=== PATIENT | female | born 1985 | race Caucasian/White ===

== ENCOUNTER 2018-09-19 03:40 | Inpatient (IN) ==
[2018-09-19 04:32] LABS: URINE SOURCE VOIDED
[2018-09-19] MEDS ORDERED: ZOFRAN IV ONE (04:45)
[2018-09-19] MEDS: LR 1,000 ML IV SCH ×2 (04:48→07:58)
[2018-09-19] MEDS: STADOL IV PRN ×2 (04:49→05:00)
[2018-09-19 05:32] LABS: BILIRUBIN URINE NEGATIVE (NEGATIVE); BLOOD URINE 4+ (NEGATIVE); CLARITY VERY CLOUDY (CLEAR); COLOR AMBER; GLUCOSE URINE NEGATIVE (NEGATIVE); KETONE URINE NEGATIVE (NEGATIVE); LEUKOCYTES URINE 1+ (NEGATIVE); NITRITE URINE NEGATIVE (NEGATIVE); PROTEIN URINE TRACE mg/dL (NEGATIVE); SP GRAVITY URINE 1.005; UROBILINOGEN URINE NORMAL
[2018-09-19] MEDS ORDERED: STADOL IV ONE (06:15)
[2018-09-19] MEDS ORDERED: ZOFRAN IV PRN (06:33)
[2018-09-19] MEDS ORDERED: PEPCID IV PRN (06:33)
[2018-09-19] MEDS ORDERED: REGLAN PO ONE (06:33)
[2018-09-19] MEDS ORDERED: TYLENOL PO PRN (06:33)
[2018-09-19] MEDS ORDERED: PEPCID PO ONE (06:33)
[2018-09-19] MEDS ORDERED: PEPCID PO PRN (06:33)
[2018-09-19] MEDS ORDERED: KEFZOL 1 GM/D5W 1 GM/50 ML IVPB IV PRN (06:33)
[2018-09-19] MEDS ORDERED: SODIUM CHLORIDE 0.9% INJ SCH (06:45)
[2018-09-19] MEDS ORDERED: PITOCIN 30 UNITS/NS 30 UNIT/500 ML IV.SOLN IV SCH ×2 (06:45→14:30)
[2018-09-19] MEDS ORDERED: LR 1,000 ML IV SCH (06:45)
[2018-09-19 06:46] LABS: BASO# 0.02 X1000 (0.0-0.2); BASO% 0.2 % (0.0-0.8); EOS% 1.1 % (0.0-10.0); HEMOGLOBIN 12.1 g/dL (12.0-16.0); IMM GRAN# 0.04 X1000 (0.0-0.04); IMM GRAN% 0.4 % (0.0-0.5); LYMPH# 2.29 X1000 (1.2-3.4); LYMPH% 25.3 % (20.5-51.1); MCH 33.4 PG (27-31); MCHC 35.6 g/dL (33-37); MCV 93.9 FL (81-99); MONO# 0.85 X1000 (0.11-0.59); MONO% 9.4 % (1.7-9.3); MPV 11.8 FL (7.4-10.4); NEUT# 5.75 X1000 (1.4-6.5); NEUT% 63.6 % (42.2-75.2); PLT 131 X1000 (130-400); RBC 3.62 XMIL (4.2-5.4); WBC 9.05 X1000 (4.8-10.8)
[2018-09-19] MEDS ORDERED: NAROPIN 0.2% EPIDURAL SCH (07:15)
[2018-09-19] MEDS ORDERED: NAROPIN 0.2% INJ PRN (07:15)
[2018-09-19] MEDS ORDERED: FENTANYL-BUPIV-NS 2 MCG-0.1% 200 ML EPIDURAL SCH (08:00)
[2018-09-19] MEDS ORDERED: MINERAL OIL ONE (08:02)
[2018-09-19] MEDS ORDERED: XYLOCAINE-MPF 1% INJ ONE (08:02)
[2018-09-19] MEDS ORDERED: PITOCIN IM PRN (14:28)
[2018-09-19] MEDS ORDERED: MINERAL OIL PO PRN (14:28)
[2018-09-19] MEDS ORDERED: AMBIEN PO PRN (14:28)
[2018-09-19] MEDS ORDERED: HYDROXYZINE IM PRN (14:28)
[2018-09-19] MEDS ORDERED: XYLOCAINE-MPF 1% INJ PRN (14:28)
[2018-09-19] MEDS ORDERED: ATARAX PO PRN (14:28)
[2018-09-19] MEDS ORDERED: BENADRYL PO PRN (14:28)
[2018-09-19] MEDS ORDERED: BENADRYL IV PRN (14:28)
[2018-09-19] MEDS ORDERED: BOOSTRIX VACCINE IM ONE (14:28)
[2018-09-19] MEDS ORDERED: M-M-R II VACCINE SUBQ ONE (14:28)
[2018-09-19] MEDS ORDERED: CYTOTEC PO PRN (14:28)
[2018-09-19] MEDS ORDERED: PITOCIN 20 UNITS/NS 20 UNITS/1,000 ML IV.SOLN IV SCH (14:30)
[2018-09-19] MEDS: PERI MEDS (DERMOPLAST/NUPERCAINAL/TUCKS) MISC PRN (15:00)
[2018-09-19] MEDS: MOTRIN PO PRN (16:26)
--- NOTE | 2018-09-19 16:55 | OPERATIVE NOTE ---
PROCEDURE DATE: 09/19/2018 PREOPERATIVE DIAGNOSIS: Intrauterine at 40 weeks gestation, in labor. POSTOPERATIVE DIAGNOSIS: Intrauterine at 40 weeks gestation, in labor. PROCEDURE: Spontaneous vaginal delivery ATTENDING: Dr. Dallas Black. ANESTHESIA: Epidural. ESTIMATED BLOOD LOSS: 200 mL. DESCRIPTION OF PROCEDURE: At 1404 on 09/19/2018 the patient delivered vaginally under epidural anesthesia. was suctioned with bulb. No nuchal cord was identified. Infant delivered vaginally without complications. The was placed on patient's abdomen after delivery. The cord was clamped and cut. Placenta was delivered intact with normal 3 vessel cord. The fundus was firm with massage and IV Pitocin. Perineal lacerations noted and a second degree perineal tear was repaired using 2-[address] needle. The patient delivered a viable male weighing 8 pounds 13 ounces and scores of 9 and 10 at 1 and 5 minutes respectively. temperature noted and sent to nursery for observation. Mom recovering well in delivery room. cc: MD YUMI Hargrove III
[2018-09-19] MEDS: PERICOLACE PO SCH (22:06)
[2018-09-20] MEDS: MOTRIN PO PRN ×3 (00:36→23:52)
[2018-09-20 07:21] LABS: HEMOGLOBIN 8.8 g/dL (12.0-16.0); RBC 2.62 XMIL (4.2-5.4); WBC 11.66 X1000 (4.8-10.8)
[2018-09-20 07:22] LABS: HEMATOCRIT 25.5 % (37.0-47.0); MCH 33.6 PG (27-31); MCHC 34.5 g/dL (33-37); MCV 97.3 FL (81-99); MPV 11.3 FL (7.4-10.4); RDW 13.3 % (11.5-14.5)
[2018-09-20] MEDS: COLACE PO SCH (10:04)
[2018-09-20] MEDS: PRECARE PO SCH (10:04)
[2018-09-20] MEDS: NORCO-5 PO PRN ×2 (15:49→23:52)
[2018-09-20] MEDS: FERROUS SULFATE PO SCH (15:52)
[2018-09-21] MEDS: PERICOLACE PO SCH (00:11)
[2018-09-21 06:45] LABS: BASO# 0.02 X1000 (0.0-0.2); BASO% 0.2 % (0.0-0.8); EOS# 0.24 X1000 (0.0-0.7); EOS% 2.7 % (0.0-10.0); HEMATOCRIT 25.1 % (37.0-47.0); HEMOGLOBIN 8.6 g/dL (12.0-16.0); IMM GRAN# 0.04 X1000 (0.0-0.04); IMM GRAN% 0.4 % (0.0-0.5); LYMPH# 1.78 X1000 (1.2-3.4); LYMPH% 19.7 % (20.5-51.1); MCH 33.3 PG (27-31); MCHC 34.3 g/dL (33-37); MCV 97.3 FL (81-99); MONO# 0.66 X1000 (0.11-0.59); MONO% 7.3 % (1.7-9.3); MPV 11.3 FL (7.4-10.4); NEUT% 69.7 % (42.2-75.2); PLT 111 X1000 (130-400); RBC 2.58 XMIL (4.2-5.4); RDW 13.1 % (11.5-14.5); WBC 9.04 X1000 (4.8-10.8)
[2018-09-21 08:14] VITALS: BP 133/85
--- NOTE | 2018-09-21 08:17 | OB/GYN PROGRESS NOTE ---
Progress Note OB - . Patient Problems: Current Active Problems Problem Status Onset Normal labor and delivery Acute Intrauterine Acute OB Progress Note: Vital Signs - 24 hr 09/20/18 09:30 09/20/18 15:50 09/20/18 20:30 Temperature 98.1 F 98.3 F 97.6 F Pulse Rate 88 71 73 Respiratory Rate 18 16 18 Blood Pressure 125/75 130/77 135/81 O2 Sat by Pulse Oximetry 97 100 09/21/18 05:00 Temperature Pulse Rate 82 Respiratory Rate 18 Blood Pressure 151/78 O2 Sat by Pulse Oximetry Laboratory Results - last 24 hr 09/21/18 06:09 WBC 9.04 RBC 2.58 L Hgb 8.6 L Hct 25.1 L MCV 97.3 MCH 33.3 H MCHC 34.3 RDW Std Deviation 13.1 Plt Count 111 L MPV 11.3 H Immature Gran % (Auto) 0.4 Neut % (Auto) 69.7 Lymph % (Auto) 19.7 L Emanuel % (Auto) 7.3 Eos % (Auto) 2.7 Baso % (Auto) 0.2 Immature Gran # (Auto) 0.04 Neut # (Auto) 6.30 Lymph # (Auto) 1.78 Emanuel # (Auto) 0.66 H Eos # (Auto) 0.24 Baso # (Auto) 0.02 32 yo G1 now P1001 WMF doing well on PPD#2 after 09-19-2018 of an 8+ lb male over midline laceration. She notes difficulty with and will obtain a pump today, notes mild low back and hemorrhoid pain responding to current remedies, and denies heavy lochia, clots, fever, or unrelieved pain. Ankle edema is unchanged from late and nontender VSS and AF. Platelets count is up from 102 to 111K and Hgb stable at 8.6 Exam NAD Fundus, lochia, laceration, extremitiesbreast survey all normal. Fundus U-2 nontender pedal and ankle edema 2+, nontender A/P Full discharge reviewed regarding meds, activities, limitations, BC, and return to Dr Holman in 6 weeks or PRN fever, heavy bleeding, unrelieved pain, breast fullness or redness, or depressed mood. Circumcision procedure, elective nature, risks , and timing after clearance by journeyman level acoustic analyst also discussed.
[2018-09-21] MEDS: MOTRIN PO PRN (09:33)
[2018-09-21] MEDS: NORCO-5 PO PRN (09:33)
[2018-09-21] MEDS: FERROUS SULFATE PO SCH (09:33)
[2018-09-21] MEDS: PERI MEDS (DERMOPLAST/NUPERCAINAL/TUCKS) MISC PRN (09:33)
[2018-09-21] MEDS: PRECARE PO SCH (09:34)
[2018-09-21] MEDS: COLACE PO SCH (09:34)
--- NOTE | 2018-09-21 21:06 | DISCHARGE SUMMARY ---
ADMISSION DATE: 09/19/2018 DISCHARGE DATE: 09/21/2018 ADMITTING DIAGNOSIS.: Active labor. DISCHARGE DIAGNOSES: 1. Normal labor and delivery. 2. Viable male infant. 3. Anemia of . 4. Blood type B-positive, rubella immune. HISTORY OF PRESENT ILLNESS: Cooper is now a 32-year-old 1, para 1-0-0-1, white female, followed under the care of Dr. Holman and presenting in active labor at 40 weeks' gestation. care began at about 18 weeks. Full details of the past medical, social, family, and histories are listed on the written record. HOSPITAL COURSE: Laboratory includes hemoglobin 8.8. She progressed in spontaneous labor to an uncomplicated normal vaginal delivery of a healthy 8-pound 13-ounce male at 14:04 hours on September 19. The infant required some nursery evaluation due to elevated temperature and white count, which has since resolved. History is notable for negative group B strep maternal culture. labs including hemoglobin 8.6 and a platelet count of 102,000, which on recheck today is 111. Evaluation at this time includes normal fundus, lochia, extremities, perineal second-degree repair, and breast exams. She is supplementing and hopes to proceed with pumping and breast- feeding prior to discharge later today and will receive nursery support for this. We discussed pros and cons of circumcision, and this will be performed prior to discharge. DISPOSITION: Cooper verbalized good understanding of discharge precautions, limitations, medications including resumption of vitamins and increasing her iron to twice a day with hydration, use of Tucks and previously prescribed prescription for hemorrhoid. We discussed return to see Dr. Holman at any time for heavy vaginal bleeding, unrelieved pain with ibuprofen 800 mg every 6 hours #40 with 1 refill, fever exceeding 100.4 degrees, breast pain or fullness, or depressed mood. She will consider control options, avoid intercourse, and have condoms and spermicide as an initial contraceptive method until decided with Dr. Holman. She verbalized good understanding of all these issues and will plan to return as advised in 6 weeks for scheduled exam. cc: Dev Holman III, MD
== END 2018-09-21 17:00 | disposition home or self-care (01) | DRG 807 ==
LOC: P.OPLD 03:40 → P.LD 03:41
PROVIDERS: ADMIT Obstetrics & Gynecology; ATTEND Obstetrics & Gynecology
CPT/HCPCS: 59025; 81003; 85025; 85027; 86592; A9270; J0595; J2405; J2590; J2795; J7120